=== PATIENT | male | born 1970 | race Caucasian/White ===

== ENCOUNTER 2024-10-07 08:30 | Outpatient (RCR) | payer OTHER, SELFPAY ==
[2024-05-26 11:22] LABS: Creatinine* 0.8 mg/dL (0.5-1.5); Est. Creatinine Clearance* 97.11; Estimated Glomerular Filt Rate 104 ml/min
[2024-06-16 14:14] LABS: Basophils Percent Auto 0.3 % (0.0-3.0); Eosinophils Percent Auto 3.4 % (0.0-7.0); Hematocrit 42.7 % (37.0-53.0); Hemoglobin* 13.9 gm/dL (13.5-17.5); Lymphocytes Percent Auto 7.6 % (20-44); Mean Corpuscular HGB Conc 33 gm/dL (32-36); Mean Corpuscular Hemoglobin 29 pg (26-34); Mean Corpuscular Volume 90 fL (80-100); Monocytes Percent Auto 17.9 % (0.0-11.0); Neutrophils Percent Auto 70.8 % (42.0-72.0); Platelet Count* 210 K/uL (140-440); RDW Coefficient of Variation % 15.7 % (11.5-15.5); Red Blood Count 4.77 m/uL (4.30-5.90)
[2024-06-16 14:19] LABS: Slide Review Reflex No
[2024-06-16 14:31] LABS: Albumin* 4.1 g/dL (3.3-5.0); Chloride* 105 mmol/L (96-114)
[2024-06-16 14:32] LABS: Sodium* 139 mmol/L (135-149)
[2024-06-16 14:34] LABS: Alkaline Phosphatase* 133 U/L (40-150); Anion Gap 6 mEq/L (7-15); Aspartate Amino Transferase* 25 U/L (12-35); Bilirubin Total* 0.4 mg/dL (0.1-1.5); Blood Urea Nitrogen* 12 mg/dL (7-30); Carbon Dioxide* 28 mmol/L (20-32); Creatinine* 0.7 mg/dL (0.5-1.5); Est. Creatinine Clearance* 110.98; Estimated Glomerular Filt Rate 108 ml/min; Total Protein* 6.6 g/dL (6.0-8.3)
[2024-06-16 14:35] LABS: Alanine Aminotransferase* 19 U/L (4-50); Calcium* 8.8 mg/dL (8.4-10.6); Glucose* 84 mg/dL (60-115)
[2024-10-07] MEDS: HEPARIN 500 UNIT/5 ML SYRINGE IVF (08:50)
[2024-10-07] MEDS: SODIUM CHLORIDE 0.9 % (FLUSH) 10 ML SYRINGE IVF (08:50)
== END 2024-11-22 23:59 | disposition home or self-care (01) ==
LOC: CCIC 08:30
PROVIDERS: Visit Provider Clinical Nurse Specialist
DX: C77.2 Secondary and unspecified malignant neoplasm of intra-abdominal lymph nodes (principal)
CPT/HCPCS: 36415; 36591; 80053; 82248; 82565; 85025; J1642